=== PATIENT | female | born 1980 | race Caucasian/White ===

== ENCOUNTER 2023-11-23 20:08 | Emergency (ER) | payer OTHER, MEDICAID ==
[~2023-11-23] VITALS: Ht 162.6 cm; Wt 75.0 kg
[2023-11-23 20:40] LABS: Basophils # (auto) 0.1 10 ^3/uL (0-0.2); Basophils % (auto) 0.7 % (0.0-2.0); Eosinophils # (auto) 0.1 10 ^3/uL (0-0.8); Eosinophils % (auto) 1.4 % (0.0-7.0); Hematocrit 42.4 % (36.0-46.0); Hemoglobin 14.4 g/dL (12.2-16.2); Lymphocytes # (auto) 3.5 10 ^3/uL (0.4-5.4); Lymphocytes % (auto) 40.6 % (10.0-50.0); Mean Corpuscular Hemoglobin 31.6 pg (28.0-32.0); Mean Corpuscular Hgb Conc. 33.9 g/dL (32.0-36.0); Monocytes # (auto) 0.4 10 ^3/uL (0-1.3); Monocytes % (auto) 4.9 % (0.0-12.0); Neutrophils # (auto) 4.5 10 ^3/uL (1.6-8.6); Neutrophils % (auto) 52.4 % (37.0-80.0); Red Blood Cells 4.56 10^6/uL (4.0-5.20); White Blood Cell 8.7 10^3/uL (4.4-10.8)
[2023-11-23 20:50] VITALS: TEMP 98.7
[2023-11-23 20:58] LABS: Acetaminophen < 2.0 UG/ML (10.0-20.0)
[2023-11-23 20:59] LABS: Alanine Aminotransferase 21 U/L (7-40); Albumin 4.4 g/dL (3.2-4.8); Alkaline Phosphatase 123 U/L (46-116); Anion Gap 11 (5-15); Aspartate Aminotransferase 29 U/L (13-40); BUN/Creatinine Ratio 9.1 (10.0-20.0); Blood Urea Nitrogen 8 mg/dL (9-23); Calcium 9.1 mg/dL (8.5-10.1); Carbon Dioxide 23 mmol/L (20-30); Chloride 107 mmol/L (98-107); Glucose 108 mg/dL (74-106); Potassium 4.3 mmol/L (3.5-5.1); Sodium 141 mmol/L (136-145)
[2023-11-23 21:00] LABS: Bilirubin, Total 0.4 mg/dL (0.2-1.0); Total Protein 7.4 g/dL (5.7-8.2)
[2023-11-23 21:07] LABS: Blood Alcohol 304.6 mg/dL (<10); Salicylate < 3.0 mg/dL (2.8-20.0)
[2023-11-23] MEDS: THIAMINE 100mg/ml INJ (200mg/2ml VIAL) IV ONE (21:30)
[2023-11-23] MEDS: MAGNESIUM SULFATE 1GM/100ML 100 ML IV SCH (22:14)
[2023-11-23] MEDS: FAMOTIDINE (10MG/ML) 2ML VL IV ONE (22:15)
[2023-11-23] MEDS: LORazepam 2MG/ML-1ML VIAL IV ONE (22:15)
[2023-11-23] MEDS: MVI in SODIUM CHLORIDE 0.9% 1,010 ML IV ONE (23:00)
[2023-11-23] MEDS: MORPHINE SULFATE 4 MG/ML SYR/VIAL IV ONE (23:00)
[2023-11-23] MEDS: hydrALAZINE HCL 20 MG/ML VL IV ONE (23:00)
[2023-11-24] MEDS: PANTOPRAZOLE 40 MG/10 ML VIAL INJ IV ONE (00:07)
[2023-11-24] MEDS: diphenhdrAMINE HCL 50 MG/1 ML VL IV ONE (00:07)
[2023-11-24] MEDS: LABETALOL HCL 5 MG/ML 4ML SYRINGE IV ONE (00:08)
[2023-11-24] MEDS: LORazepam 2MG/ML-1ML VIAL IV ONE (00:20)
[2023-11-24 03:00] VITALS: BP 133/82; PULSE 115; RESP 19; O2SAT 96
== END 2023-11-24 03:39 | disposition home or self-care (01) ==
LOC: EDBD 20:08 → ER 20:08
DX: R45.851 Suicidal ideations (principal); R10.2 Pelvic and perineal pain; I10 Essential (primary) hypertension
CPT/HCPCS: 36415; 80053; 80320; 80329; 84702; 85025; 93005; 96365; 96366; 96375; 96376; 99285; J0360; J1200; J2060; J2270; J3411; J3475; J3490

== ENCOUNTER 2023-12-01 10:44 | Inpatient (IN) | payer OTHER, MEDICAID ==
[~2023-12-01] VITALS: Ht 160 cm; Wt 74.6 kg
[2023-12-01] MEDS: SODIUM CHLORIDE 0.9% 1,000 ML IV ONE ×3 (11:10→17:35)
[2023-12-01] MEDS: LORazepam 2MG/ML-1ML VIAL IV ONE (11:10)
[2023-12-01] MEDS: ONDANSETRON HCL 4 MG/2 ML VIAL IV ONE (11:15)
[2023-12-01 11:28] LABS: Basophils # (auto) 0.1 10 ^3/uL (0-0.2); Basophils % (auto) 0.4 % (0.0-2.0); Eosinophils # (auto) 0 10 ^3/uL (0-0.8); Hematocrit 41.2 % (36.0-46.0); Hemoglobin 13.7 g/dL (12.2-16.2); Lymphocytes # (auto) 0.8 10 ^3/uL (0.4-5.4); Lymphocytes % (auto) 5.6 % (10.0-50.0); Mean Corpuscular Hemoglobin 31.1 pg (28.0-32.0); Mean Corpuscular Hgb Conc. 33.4 g/dL (32.0-36.0); Mean Corpuscular Volume 93.2 fL (80.0-100.0); Monocytes # (auto) 0.9 10 ^3/uL (0-1.3); Monocytes % (auto) 5.7 % (0.0-12.0); Neutrophils # (auto) 13.4 10 ^3/uL (1.6-8.6); Neutrophils % (auto) 88.3 % (37.0-80.0); Nucleated Red Blood Cells % 0.1 %; Red Blood Cells 4.42 10^6/uL (4.0-5.20); Red Cell Distribution Width 14.1 % (11.8-14.3); White Blood Cell 15.1 10^3/uL (4.4-10.8)
[2023-12-01 11:29] LABS: Chloride 102 mmol/L (98-107); Sodium 138 mmol/L (136-145)
[2023-12-01 11:30] LABS: Anion Gap 10 (5-15); Calcium 9.1 mg/dL (8.5-10.1); Carbon Dioxide 26 mmol/L (20-30)
[2023-12-01 11:35] LABS: BUN/Creatinine Ratio 9.6 (10.0-20.0); Blood Urea Nitrogen 8 mg/dL (9-23); Glucose 131 mg/dL (74-106)
[2023-12-01 11:54] LABS: Amphetamine Screen, Urine Neg (NEGATIVE); Barbiturate Scree,Urine Neg (NEGATIVE); Benzodiazephine Screen, Urine Neg (NEGATIVE); Cocaine Screen, Urine Neg (NEGATIVE); Opiate Scree,Urine Neg (NEGATIVE)
[2023-12-01 11:55] LABS: Cannabinoid Screen, Urine Neg (NEGATIVE); Phencyclidine Screen, Urine Neg (NEGATIVE)
[2023-12-01] MEDS: PROCHLORPERAZINE EDISYLATE 5 MG/ML 2ML VIAL IV ONE (12:12)
[2023-12-01] MEDS ORDERED: NITROGLYCERIN 0.4 MG SL TAB SL PRN (13:00)
[2023-12-01] MEDS ORDERED: MORPHINE SULFATE INJ 2 MG/ml SYRG IV PRN (13:00)
[2023-12-01] MEDS ORDERED: ONDANSETRON HCL 4 MG/2 ML VIAL IV PRN (13:00)
[2023-12-01] MEDS: cefTRIAXone 1GM/50ML D5W 50 ML IV ONE (13:23)
[2023-12-01] MEDS: SODIUM CHLORIDE 0.9% 1,000 ML IV SCH (13:23)
[2023-12-01] MEDS ORDERED: DULO1CAP5 PO (13:33)
[2023-12-01] MEDS ORDERED: PRAZ2CAP2 PO (13:33)
[2023-12-01] MEDS ORDERED: GABA-1251 PO (13:33)
[2023-12-01] MEDS ORDERED: AMLO1TAB23 PO (13:33)
[2023-12-01] MEDS ORDERED: PRA1C PO (13:33)
[2023-12-01] MEDS ORDERED: AMLO1TAB22 PO (13:33)
[2023-12-01] MEDS ORDERED: GABA-1250 PO (13:33)
[2023-12-01] MEDS ORDERED: MELO7.5T7 PO (13:33)
[2023-12-01] MEDS ORDERED: TRAZ-227 PO (13:33)
[2023-12-01] MEDS ORDERED: HYDR50TA69 PO (13:33)
[2023-12-01] MEDS ORDERED: NALT50TA5 PO (13:33)
[2023-12-01] MEDS ORDERED: DULO1CAP4 PO (13:33)
[2023-12-01] MEDS ORDERED: DULO1CAP6 PO (13:33)
[2023-12-01] MEDS: LORazepam 2MG/ML-1ML VIAL IV PRN (17:21)
[2023-12-01] MEDS: FOLIC ACID 1 MG, MAGNESIUM SULF SDV 50% 8 MEQ, MULTIPLE VITAMIN 10 ML, THIAMINE INJ 100... INJ SCH (21:14)
[2023-12-02] VITALS (10 sets, daily range): BP systolic 143–170; BP diastolic 93–109; PULSE 65–121; RESP 16–20; TEMP 97.6–98.6; O2SAT 95–99
[2023-12-02] MEDS: ENOXAPARIN SOD 40 MG/0.4 ML SYRINGE SC SCH (08:04)
[2023-12-02] MEDS: cefTRIAXone 1GM/50ML D5W 50 ML IV SCH (08:05)
[2023-12-02] MEDS: hydrALAZINE HCL 20 MG/ML VL IV PRN (08:05)
[2023-12-02 08:52] LABS: Basophils # (auto) 0 10 ^3/uL (0-0.2); Basophils % (auto) 0.2 % (0.0-2.0); Eosinophils # (auto) 0.1 10 ^3/uL (0-0.8); Eosinophils % (auto) 1.9 % (0.0-7.0); Hematocrit 34.5 % (36.0-46.0); Hemoglobin 11.7 g/dL (12.2-16.2); Lymphocytes # (auto) 1.6 10 ^3/uL (0.4-5.4); Lymphocytes % (auto) 29.6 % (10.0-50.0); Mean Corpuscular Hemoglobin 31.9 pg (28.0-32.0); Mean Corpuscular Hgb Conc. 33.9 g/dL (32.0-36.0); Monocytes # (auto) 0.5 10 ^3/uL (0-1.3); Monocytes % (auto) 8.9 % (0.0-12.0); Neutrophils # (auto) 3.3 10 ^3/uL (1.6-8.6); Neutrophils % (auto) 59.4 % (37.0-80.0); Nucleated Red Blood Cells % 0.1 %; Red Blood Cells 3.67 10^6/uL (4.0-5.20); Red Cell Distribution Width 13.8 % (11.8-14.3); White Blood Cell 5.5 10^3/uL (4.4-10.8)
[2023-12-02 09:08] LABS: Alanine Aminotransferase 17 U/L (7-40); Albumin 3.6 g/dL (3.2-4.8); Alkaline Phosphatase 127 U/L (46-116); Anion Gap 5 (5-15); Aspartate Aminotransferase 24 U/L (13-40); Bilirubin, Total 0.8 mg/dL (0.2-1.0); Carbon Dioxide 26 mmol/L (20-30); Chloride 107 mmol/L (98-107); Glucose 108 mg/dL (74-106); Potassium 2.8 mmol/L (3.5-5.1); Sodium 138 mmol/L (136-145)
[2023-12-02 09:13] LABS: BUN/Creatinine Ratio 7.2 (10.0-20.0); Blood Urea Nitrogen < 5 mg/dL (9-23)
[2023-12-02] MEDS: MAGNESIUM OXIDE 400 MG TAB PO ONE (09:30)
[2023-12-02] MEDS: POTASSIUM EFFERVESENT TAB 25 MEQ PO ONE (09:30)
[2023-12-02 12:05] LABS: INR 1.03 (0.9-1.15); Partial Thromboplastin Time 27.9 SEC (24.5-34.5); Prothrombin Time 10.9 sec (9.3-11.8)
[2023-12-02 17:01] LABS: COVID19 ANTIGEN SOFIA FIA NEGATIVE (NEGATIVE)
[2023-12-02 19:24] LABS: Rapid Influenza A Negative (Negative); Rapid Influenza B Negative (Negative)
[2023-12-02 19:26] LABS: Potassium 3.1 mmol/L (3.5-5.1)
[2023-12-02] MEDS: ACETAMINOPHEN 325 MG TAB PO PRN (19:56)
[2023-12-02] MEDS: GABAPENTIN 300 MG CAP PO SCH (21:09)
[2023-12-03 01:00] VITALS: BP 142/100; PULSE 110; RESP 18; TEMP 98.4; O2SAT 96
[2023-12-03] MEDS: HYDROcodone-ACET 5/325MG TAB PO ONE (01:12)
[2023-12-03 05:31] LABS: Basophils # (auto) 0 10 ^3/uL (0-0.2); Basophils % (auto) 0.4 % (0.0-2.0); Eosinophils # (auto) 0.1 10 ^3/uL (0-0.8); Eosinophils % (auto) 1.9 % (0.0-7.0); Hematocrit 34.5 % (36.0-46.0); Hemoglobin 11.8 g/dL (12.2-16.2); Lymphocytes # (auto) 1.7 10 ^3/uL (0.4-5.4); Lymphocytes % (auto) 35.4 % (10.0-50.0); Mean Corpuscular Hemoglobin 32.1 pg (28.0-32.0); Mean Corpuscular Hgb Conc. 34.1 g/dL (32.0-36.0); Mean Corpuscular Volume 94.1 fL (80.0-100.0); Monocytes # (auto) 0.5 10 ^3/uL (0-1.3); Neutrophils # (auto) 2.5 10 ^3/uL (1.6-8.6); Neutrophils % (auto) 52.3 % (37.0-80.0); Nucleated Red Blood Cells % 0.2 %; Red Blood Cells 3.66 10^6/uL (4.0-5.20); White Blood Cell 4.9 10^3/uL (4.4-10.8)
[2023-12-03 05:45] LABS: Anion Gap 6 (5-15); Carbon Dioxide 27 mmol/L (20-30); Chloride 105 mmol/L (98-107); Potassium 3.3 mmol/L (3.5-5.1); Sodium 138 mmol/L (136-145)
[2023-12-03 05:46] LABS: Calcium 8.7 mg/dL (8.7-10.4)
[2023-12-03 05:51] LABS: Glucose 95 mg/dL (74-106)
[2023-12-03 05:52] LABS: Magnesium 2.1 mg/dL (1.6-2.6)
[2023-12-03 05:59] LABS: BUN/Creatinine Ratio 7.7 (10.0-20.0); Blood Urea Nitrogen < 5 mg/dL (9-23)
[2023-12-03] MEDS: POTASSIUM CHL 20 Meq TABLET PO ONE (06:49)
[2023-12-03 08:10] VITALS: PULSE 109; O2SAT 95
[2023-12-03 08:30] VITALS: BP 160/98; PULSE 114; RESP 18; TEMP 97.9; O2SAT 95
[2023-12-03 09:43] LABS: Urine Bacteria FEW /hpf (None Seen); Urine Blood Negative /uL (Negative); Urine Clarity Clear (Clear); Urine Color Light-Yellow (Yellow); Urine Protein, UAD Negative (Negative); Urine Specific Gravity 1.009 (1.001-1.035); Urine Urobilinogen Normal (Negative); Urine WBC 2 /hpf (0 - 5)
[2023-12-03] MEDS: LOSARTAN POTASSIUM 50 MG TAB PO SCH (09:52)
[2023-12-03] MEDS: amLODIPine BESYLATE 5 MG TAB PO SCH (09:53)
[2023-12-03] MEDS: chlordiazePOXIDE HCL 5 MG CAP PO PRN (10:21)
[2023-12-03 12:30] VITALS: BP 160/87; PULSE 109; RESP 18; TEMP 98.1; O2SAT 96
[2023-12-03] MEDS: GABAPENTIN 300 MG CAP PO SCH (15:03)
[2023-12-03] MEDS: POTASSIUM CHLORIDE 40 MEQ, LIDOCAINE 1% (LOCAL ANESTH.) 4 ML in SODIUM CHL 0.9% 250 ML IV ONE (15:04)
[2023-12-03 17:01] VITALS: BP 134/86; PULSE 80; RESP 18; TEMP 97.9; O2SAT 98
[2023-12-03] MEDS ORDERED: LOSA-534 PO (17:23)
[2023-12-03] MEDS ORDERED: MULT1TAB96 PO (17:23)
[2023-12-03 18:42] VITALS: BP 134/86; PULSE 80; RESP 18; TEMP 97.9; O2SAT 98
== END 2023-12-03 19:05 | disposition home or self-care (01) | DRG 71 ==
LOC: ER 10:44 → EDBD 10:44 → TELE 12:53 → TELE-WESTW 12-02 02:05
PROVIDERS: ADMIT Nurse Practitioner Family; ATTEND Nurse Practitioner Family
DX: G93.41 Metabolic encephalopathy (principal); F10.231 Alcohol dependence with withdrawal delirium; I10 Essential (primary) hypertension; E87.6 Hypokalemia; E83.42 Hypomagnesemia; Z20.822 Contact with and (suspected) exposure to COVID-19; Y90.2 Blood alcohol level of 40-59 mg/100 ml; D72.829 Elevated white blood cell count, unspecified; M79.7 Fibromyalgia; F41.9 Anxiety disorder, unspecified; Z82.49 Family history of ischemic heart disease and other diseases of the circulatory system; Z83.3 Family history of diabetes mellitus; Z98.51 Tubal ligation status
CPT/HCPCS: 36415; 70450; 80048; 80051; 80053; 80307; 80320; 81001; 81025; 83735; 85025; 85610; 85730; 87040; 87081; 87426; 87804; 93005; 96365; 96375; 99291; G0378; J2001

== ENCOUNTER 2025-04-09 22:19 | Emergency (ER) | payer OTHER, MEDICAID ==
[~2025-04-09] VITALS: Ht 160 cm; Wt 62.3 kg
[~2025-04-09 22:19] MED LIST: AMLO1TAB23 PO; DULO1CAP6 PO; GABA-1251 PO; HYDR50TA69 PO; LOSA-534 PO; MELO7.5T7 PO; MULT1TAB96 PO; NALT50TA5 PO; PRAZ1CAP2 PO; TRAZ-227 PO
--- NOTE | 2025-04-09 22:31 | ED.PDOC ---
History of Present Illness HPI Comments 44 y/o F, with a Hx of anxiety, HTN, lupus, and nicotine vape use, is BIBA for c/c nonradiating, substernal chest and LLQ abdominal pain. Patient endorses on unprovoked and atraumatic additional onset of chest pain 4 hours prior to arrival, today, after having abdominal pain for the past 4x days. Pain is ed cribed as alternating between dull and sharp in quality. Denial of any shortness of breath, palpitations, nausea, vomiting, or further associated symptoms. Chief Complaint: Chest Pain Time Seen by MD: 22:20 Reviewed Notes: Nurses Notes, Roller Hand Notes, Medications, Allergies Allergies: Coded Allergies: NO KNOWN ALLERGIES (Unverified , 11/23/23) Home Meds Active Scripts Ondansetron HCl (Ondansetron Hydrochloride) 8 Mg Tab, 8 MG PO Q6HP PRN, #30 TAB Prov:FREDDIE MCNULTY MD 04/10/25 Gabapentin (Once-Daily) (Gabapentin) 300 Mg Tab, 300 MG PO Q6HP PRN, #60 TAB Prov:FREDDIE MCNULTY MD 04/10/25 Losartan Potassium (Losartan Potassium) 50 Mg Tab, 50 MG PO DAILY for 30 Days, #30 TAB Prov:ANTHONY HONEYCUTT RESIDENT 12/03/23 Multiple Vitamins W/ Iron (Multi Vitamin with Iron) 1 Tab Tab, 1 TAB PO DAILY for 30 Days, #30 TAB Prov:ANTHONY HONEYCUTT RESIDENT 12/03/23 Reported Medications Naltrexone Hcl (Naltrexone Hcl) 50 Mg Tab, 1 TAB PO DAILY 12/01/23 Amlodipine Besylate (Amlodipine Besylate) 10 Mg Tab, 1 TAB PO DAILY 12/01/23 Prazosin Hcl (Minipres) 1 Mg Cp, 1 CAP PO 12/01/23 Trazodone Hcl (Trazodone Hcl) 50 Mg Tab, 1 TAB PO 12/01/23 Duloxetine HCl (Duloxetine HCl) 60 Mg Cap, 1 CAP PO DAILY 12/01/23 Gabapentin (Gabapentin) 400 Mg Cap, CAP PO 12/01/23 Hydroxyzine Hcl (Hydroxyzine Hcl) 50 Mg Tab, 1 TAB PO BID 12/01/23 Meloxicam (Meloxicam) 7.5 Mg Tab, 1 TAB PO BID 5/17/24 Information Source: Patient, Emergency Med Personnel Mode of Arrival: EMS Severity: Moderate Timing: Hours Duration: Since onset Prehospital treatment: 12 Lead EKG, Tattoo Technician Past Medical History PAST MEDICAL HISTORY: Anxiety, HTN Past Medical History (Other): lupus Surgical History: BTL 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 Pertinent OCCUPATIONAL WORK EXPERIENCE TEACHER History Family History Family History: Family hx of DM, Family hx of heart fawn Social History Smoker: Other (nicotine vape ) Alcohol: Sober Drugs: Denies Drug Use Lives In: Home All Other Systems: Reviewed and Negative (As per HPI) Physical Exam General Appearance: Mild Distress, Normal HEENT: Normal ENT Inspection, Pharynx Normal, TMs Normal Neck: Full Range of Motion, Non-Tender, Normal, Normal Inspection Respiratory: Chest Non-Tender, Lungs Clear, No Accessory Muscle Use, No Respiratory Distress, Normal Breath Sounds Cardiovascular: No Edema, No JVD, No Murmur, No Gallop, Normal Peripheral Pulses, Regular Rate/Rhythm Breast Exam: Deferred Gastrointestinal: LLQ (tenderness ), No Organomegaly, No Pulsatile Mass, Normal Bowel Sounds, Soft, Tenderness (LLQ) Genitalia: Deferred Pelvic: Deferred Rectal: Deferred Extremities: No calf tenderness, Normal capillary refill, Normal inspection, Normal range of motion, Non-tender, No pedal edema Musculoskeletal : Apperance: Normal Neurologic: Alert, hunting guide II-XII nml as Tested, No Motor Deficits, Normal Affect, Normal Mood, No Sensory Deficits Cerebellar Function: Normal Reflexes: Normal Skin: Dry, Normal Color, Warm Lymphatic: No Adenopathy Was a procedure done? Was a procedure done?: No Differential Dx Considerations may include: gastritis, gastroenteritis, GERD, PUD, splenic infarction, DE, PE, ACS, angina, anxiety, among others X-Ray, Labs, Meds, VS Vital Signs Date Time Temp Pulse Resp B/P (MAP) Pulse Ox O2 Delivery O2 Flow Rate FiO2 04/10/25 03:23 76 16 154/90 04/10/25 03:15 76 18 154/90 (111) 96 04/10/25 02:11 97.7 81 18 139/105 (116) 98 97.7 04/09/25 23:42 79 22 110/72 04/09/25 23:36 62 04/09/25 23:34 98.0 79 16 110/72 (85) 95 98.0 04/09/25 23:34 19 98 Room Air* 0 21 04/09/25 22:21 79 04/09/25 22:20 98.3 80 16 162/107 97 98.3 Lab Test 04/09/25 23:23 04/09/25 22:25 Range/Units Troponin I High Sensitivity < 3 L < 3 L </=34 ng/L White Blood Count 7.6 4.4-10.8 10^3/uL Red Blood Count 4.29 4.0-5.20 10^6/uL Hemoglobin 12.2 12.2-16.2 g/dL Hematocrit 36.4 36.0-46.0 % Mean Corpuscular Volume 84.8 80.0-100.0 fL Mean Corpuscular Hemoglobin 28.6 28.0-32.0 pg Mean Corpuscular Hemoglobin Concent 33.7 32.0-36.0 g/dL Red Cell Distribution Width 17.8 H 11.8-14.3 % Platelet Count 135 L 140-450 10^3/uL Mean Platelet Volume 6.7 L 6.9-10.8 fL Neutrophils (%) (Auto) 83.7 H 37.0-80.0 % Lymphocytes (%) (Auto) 9.3 L 10.0-50.0 % Monocytes (%) (Auto) 6.4 0.0-12.0 % Eosinophils (%) (Auto) 0.2 0.0-7.0 % Basophils (%) (Auto) 0.4 0.0-2.0 % Neutrophils # (Auto) 6.4 1.6-8.6 10 ^3/uL Lymphocytes # (Auto) 0.7 0.4-5.4 10 ^3/uL Monocytes # (Auto) 0.5 0-1.3 10 ^3/uL Eosinophils # (Auto) 0 0-0.8 10 ^3/uL Basophils # (Auto) 0 0-0.2 10 ^3/uL Nucleated Red Blood Cells 0.1 % Sodium Level 137 136-145 mmol/L Potassium Level 3.4 L 3.5-5.1 mmol/L Chloride Level 99 98-107 mmol/L Carbon Dioxide Level 24 20-31 mmol/L Anion Gap 14 5-15 Blood Urea Nitrogen 7 L 9-23 mg/dL Creatinine 1.15 H 0.550-1.02 mg/dL Glomerular Filtration Rate Calc 61 >90 mL/min BUN/Creatinine Ratio 6.1 L 10.0-20.0 Serum Glucose 113 H 74-106 mg/dL Calcium Level 8.4 L 8.7-10.4 mg/dL Total Bilirubin 0.4 0.2-1.0 mg/dL Aspartate Amino Transferase (AST) 112 H 13-40 U/L Alanine Aminotransferase (ALT) 34 7-40 U/L Alkaline Phosphatase 167 H 46-116 U/L Total Protein 7.3 5.7-8.2 g/dL Albumin 4.0 3.2-4.8 g/dL Lipase 30 12-53 U/L Current Medications Medications (Trade) Dose Ordered Sig/Oren Route Start Time Stop Time Status Last Admin Ondansetron HCl (Zofran) 4 mg ONCE ONCE IV 04/09/25 22:30 04/09/25 22:31 DC 04/09/25 23:41 Sodium Chloride 1,000 ml @ 1,000 mls/hr Q1H ONCE IVB 04/09/25 22:30 04/09/25 23:29 DC 04/09/25 23:42 Morphine Sulfate 4 mg ONCE ONCE IV 04/09/25 22:30 04/09/25 22:31 DC 04/09/25 23:42 Potassium Chloride (Klor-Con Tablet) 10 meq ONCE ONCE PO 04/10/25 03:00 04/10/25 03:01 DC 04/10/25 03:11 Acetaminophen/ Hydrocodone Bitart ([place] 5/325MG Tab) 1 tab ONCE ONCE PO 04/10/25 03:30 04/10/25 03:31 DC 04/10/25 03:23 [place] [id number] Ph: [phone] DIAGNOSTIC IMAGING Diagnostic Imaging Report : [id number] Signed PATIENT: KAREN MASON ACCT: [id number] UNIT: [id number] : 1980 LOC: ER ROOM / BED: / AGE / SEX: 44 / F ADM STATUS: REG ER SERVICE 26 ORDERING PHYSICIAN: FREDDIE MCNULTY MD PROCEDURE(s): ABPLIV - CT AB PEL WITH IV CON ONLY REASON: LLQ pain ORDER NUMBER(s): [id number], ACCESSION NUMBER(s): [id number] Exam: CT CT AB PEL WITH IV CON ONLY History: LLQ pain COMPARISON: None Technique: Multidetector spiral CT of the abdomen and pelvis was performed from lung bases to pubic symphysis. Intravenous contrast was administered during this examination. Portal venous imaging was obtained. Axial, coronal and sagittal multiplanar reformats were performed by the technologist on a separate workstation. Radiation Dose : 1. Abdomen/Pelvis: CTDIvol 12.83mGy, DLP 664.58 mGy*cm. Findings: Lung Bases: No acute or significant lung base finding. Normal heart size. No pleural or pericardial effusion. Liver: The liver is normal in size. No focal lesions. Normal hepatic vascular enhancement. Gallbladder and biliary Tree: Unremarkable Spleen: Unremarkable Pancreas: The pancreas is normal in appearance without focal lesions or abnormal enhancement. Adrenal Glands: Unremarkable Kidneys: No hydronephrosis. Bladder: Unremarkable Bowel: The stomach is grossly normal in appearance. Small bowel and colon are normal in caliber and distribution. The appendix is not visualized; however, no secondary findings of acute appendicitis identified. Ascites: Absent Lymphadenopathy: No mesenteric, retroperitoneal or periportal lymphadenopathy. Abdominal wall and Mesentery: Unremarkable. Vasculature: The visualized abdominal aorta is normal in size and caliber. Abdominal and pelvic vessels demonstrate normal enhancement. Pelvic Organs: Unremarkable Musculoskeletal: No aggressive focal bony lesions, acute fractures or dislocation. IMPRESSION: No acute abdominal or pelvic finding. Radiation optimization: All CT scans at this facility use at least one of these dose optimization techniques: automated exposure control mA and/or kV adjustment per patient size (includes targeted exams where dose is matched to clinical indication) or iterative reconstruction. ATED BY: VENKATA HUBER MD DICTATED DATE/TIME: 04/10/25140 SIGNED BY: VENKATA HUBER MD SIGNED DATE/TIME: 04/10/25140 CC: Time of 1ST Reevaluation: 22:50 Reevaluation 1ST: Unchanged Patient Education/Counseling: Diagnosis, Treatment, Need For Follow Up Family Education/Counseling: No Family Present SEPSIS Sepsis Screen Physician Orders Electrocardigram (04/09/25 23:24) Electrocardigram (04/10/25 01:24) Urinalysis (04/09/25 22:27) Ct Ab Pel With Iv Con Only (04/09/25 22:27) Test, Urine (04/09/25 22:27) Vital Signs Date Time Temp Pulse Resp B/P (MAP) Pulse Ox O2 Delivery O2 Flow Rate FiO2 04/10/25 03:23 76 16 154/90 04/10/25 03:15 76 18 154/90 (111) 96 04/10/25 02:11 97.7 81 18 139/105 (116) 98 97.7 04/09/25 23:42 79 22 110/72 04/09/25 23:36 62 04/09/25 23:34 98.0 79 16 110/72 (85) 95 98.0 04/09/25 23:34 19 98 Room Air* 0 21 04/09/25 22:21 79 04/09/25 22:20 98.3 80 16 162/107 97 98.3 Laboratory Tests Test 04/09/25 22:25 White Blood Count 7.6 10^3/uL (4.4-10.8) Medications Medications Dose Ordered Sig/Oren Route Start Time Stop Time Status Last Admin Dose Admin Acetaminophen/ Hydrocodone Bitart 1 tab ONCE ONCE PO 04/10/25 03:30 04/10/25 03:31 DC 04/10/25 03:23 Morphine Sulfate 4 mg ONCE ONCE IV 04/09/25 22:30 04/09/25 22:31 DC 04/09/25 23:42 Ondansetron HCl 4 mg ONCE ONCE IV 04/09/25 22:30 04/09/25 22:31 DC 04/09/25 23:41 Potassium Chloride 10 meq ONCE ONCE PO 04/10/25 03:00 04/10/25 03:01 DC 04/10/25 03:11 Sodium Chloride 1,000 ml @ 1,000 mls/hr Q1H ONCE IVB 04/09/25 22:30 04/09/25 23:29 DC 04/09/25 23:42 Departure 1 Departure Time of Disposition: 01:00 Impression: Primary Impression: Atypical chest pain Additional Impression: Abdominal pain Disposition: 01 HOME / SELF CARE / HOMELESS Condition: Stable e-Prescriptions Ondansetron HCl (Ondansetron Hydrochloride) 8 Mg Tab 8 MG PO Q6HP PRN, #30 TAB Prov: FREDDIE MCNULTY MD 04/10/25 Gabapentin (Once-Daily) (Gabapentin) 300 Mg Tab 300 MG PO Q6HP PRN, #60 TAB Prov: FREDDIE MCNULTY MD 04/10/25 Discharged With: Self Critical Care Note Critical Care Time?: No Stability Stability form required: No Heart Score Heart Score: Heart Score Response (Comments) Value History Slightly Suspicious 0 EKG Normal 0 Age <45 0 Risk Factors 1 or 2 risk factors 1 Troponin Normal limit 0 Total 1 I personally scribed for FREDDIE MCNULTY MD ([email or web address]) on 04/09/25 at 22:31. Electronically submitted by Les Stovall ([email or web address]). I personally scribed for FREDDIE MCNULTY MD ([email or web address]) on 04/10/25 at 02:11. Electronically submitted by Les Stovall ([email or web address]). FREDDIE MCNULTY MD Apr 09, 2025 22:31
--- NOTE | 2025-04-09 22:34 | ECG ---
[facility] Test Date: 2025-04-09 Test Time: 22:21:02 Pat Name: KAREN MASON Department: [facility] ED Patient ID: [id number] Room: Gender: F Program Lead: mercedes : 1980 Requested By: FREDDIE MCNULTY Order Number: [id number] Reading MD: Measurements Intervals [place] Rate: 79 P: 70 MT: 162 QRS: -9 QRSD: 94 T: 50 QT: 435 QTc: 499 Interpretive Statements Sinus rhythm Anterior infarct, old Baseline wander in lead(s) I,II,aVR Please click the below link to view image of tracing.
[2025-04-09 22:38] LABS: Hematocrit 36.4 % (36.0-46.0); Hemoglobin 12.2 g/dL (12.2-16.2); Mean Corpuscular Hemoglobin 28.6 pg (28.0-32.0); Mean Corpuscular Volume 84.8 fL (80.0-100.0); Nucleated Red Blood Cells % 0.1 %
[2025-04-09 22:57] LABS: Alanine Aminotransferase 34 U/L (7-40); Albumin 4.0 g/dL (3.2-4.8); Anion Gap 14 (5-15); BUN/Creatinine Ratio 6.1 (10.0-20.0); Carbon Dioxide 24 mmol/L (20-31); Chloride 99 mmol/L (98-107); Lipase 30 U/L (12-53); Potassium 3.4 mmol/L (3.5-5.1); Sodium 137 mmol/L (136-145); Total Protein 7.3 g/dL (5.7-8.2)
[2025-04-09 22:58] LABS: Alkaline Phosphatase 167 U/L (46-116); Bilirubin, Total 0.4 mg/dL (0.2-1.0); Blood Urea Nitrogen 7 mg/dL (9-23); Calcium 8.4 mg/dL (8.7-10.4); Glucose 113 mg/dL (74-106)
[2025-04-09 23:34] VITALS: RESP 19; O2SAT 98
[2025-04-09] MEDS: ONDANSETRON HCL 4 MG/2 ML VIAL IV ONE (23:41)
[2025-04-09] MEDS: MORPHINE SULFATE 4 MG/ML SYR/VIAL IV ONE (23:42)
[2025-04-09] MEDS: SODIUM CHLORIDE 0.9% 1,000 ML IVB ONE (23:42)
--- NOTE | 2025-04-10 01:43 | DVH ---
Exam: CT CT AB PEL WITH IV CON ONLY History: LLQ pain COMPARISON: None Technique: Multidetector spiral CT of the abdomen and pelvis was performed from lung bases to pubic s ymphysis. Intravenous contrast was administered during this examination. Portal venous imaging was o btained. Axial, coronal and sagittal multiplanar reformats were performed by the technologist on a [email or web address] workstation. Radiation Dose : 1. Abdomen/Pelvis: CTDIvol 12.83mGy, DLP 664.58 mGy*cm. Findings: Lung Bases: No acute or significant lung base finding. Normal heart size. No pleural or pericardial effusion. Liver: The liver is normal in size. No focal lesions. Normal hepatic vascular enhancement. Gallbladder and biliary Tree: Unremarkable Spleen: Unremarkable Pancreas: The pancreas is normal in appearance without focal lesions or abnormal enhancement. Adrenal Glands: Unremarkable Kidneys: No hydronephrosis. Bladder: Unremarkable Bowel: The stomach is grossly normal in appearance. Small bowel and colon are normal in caliber and d istribution. The appendix is not visualized; however, no secondary findings of acute appendicitis anurag ntified. Ascites: Absent Lymphadenopathy: No mesenteric, retroperitoneal or periportal lymphadenopathy. Abdominal wall and Mesentery: Unremarkable. Vasculature: The visualized abdominal aorta is normal in size and caliber. Abdominal and pelvic vess els demonstrate normal enhancement. Pelvic Organs: Unremarkable Musculoskeletal: No aggressive focal bony lesions, acute fractures or dislocation. IMPRESSION: No acute abdominal or pelvic finding. Radiation optimization: All CT scans at this facility use at least one of these dose optimization fely hniques: automated exposure control mA and/or kV adjustment per patient size (includes targeted exam s where dose is matched to clinical indication) or iterative reconstruction.
[2025-04-10 02:11] VITALS: TEMP 97.7
[2025-04-10] MEDS: IOHEXOL 300 MG/ML 100ML BOTTLE IJ ONE (02:30)
[2025-04-10] MEDS ORDERED: ONDA-180 PO (02:59)
[2025-04-10] MEDS ORDERED: GABA300T4 PO (02:59)
[2025-04-10] MEDS: POTASSIUM CHL 10 Meq TABLET PO ONE (03:11)
[2025-04-10 03:15] VITALS: O2SAT 96
[2025-04-10 03:23] VITALS: BP 154/90; PULSE 76; RESP 16
[2025-04-10] MEDS: HYDROcodone-ACET 5/325MG TAB PO ONE (03:23)
--- NOTE | 2025-04-10 05:38 | ECG ---
[facility] Test Date: 2025-04-09 Test Time: 23:36:14 Pat Name: KAREN MASON Department: Room: Gender: F Banking Management Consulting Manager: mercedes : 1980 Requested By: FREDDIE MCNULTY Order Number: [id number] Reading MD: Measurements Intervals [place] Rate: 62 P: 66 AR: 143 QRS: 7 QRSD: 80 T: 43 QT: 465 QTc: 473 Interpretive Statements Sinus rhythm Low voltage, precordial leads Please click the below link to view image of tracing.
== END 2025-04-10 03:34 | disposition home or self-care (01) ==
LOC: EDBD 22:19 → ER 22:19 → EDUNIT# 22:19 → ER 04-10 03:34
DX: R07.89 Other chest pain (principal); R10.32 Left lower quadrant pain; F41.9 Anxiety disorder, unspecified; I10 Essential (primary) hypertension; I25.2 Old myocardial infarction; F17.290 Nicotine dependence, other tobacco product, uncomplicated; Z79.899 Other long term (current) drug therapy; Z98.51 Tubal ligation status
CPT/HCPCS: 36415; 74177; 80053; 83690; 84484; 85025; 93005; 96361; 96374; 96375; 99285; J2270; J2405; J7030; Q9967